=== PATIENT | female | born 1965 ===

== ENCOUNTER 2025-08-25 12:24 | Outpatient (REF) | payer OTHER, MEDICARE, MEDICAID, SELFPAY ==
--- NOTE | 2025-08-25 14:26 | MHC.AU.HA1 ---
Hearing Aid Evaluation Date of Visit: 08/25/25 Historical Information: Description of Hearing: Within normal .25-.5 kHz dropping to moderate to moderately-severe sensorineural hearing loss, bilaterally Summary: Hearing test and medical clearance from [facility]. Reported noticing hearing loss ~2 years ago which gradually worsened. Now having significant difficulty communication in all listening environments. Often gets embarrassed or frustrated from having to ask for repetition or mishearing words. Tried her mom's 15 year old BRUSH and noted improvement in hearing and ease of communication. Ready to pursue her own hearing aids to help facilitate better communication. Discussed manufacturers, styles, technology. Opted for rechargeable RITE compatible with iPhone. Hearing Aid Prescription: Based on the individual?s shared listening needs, communication environments, dexterity, desire for connectivity, and personal preferences, the following prescription for amplification has been made: Right ear: Make, Model, Color: [employer] Intent 2 miniRITE-R Color: Black Battery Size: Rechargeable Sheet Manufacturing Supervisor/Slim Tube: 2/85 Type of Earmold/Dome/CShell/SlimTip: 8mm double gonzalez dome Left ear: Left ear prescription to be same as Right Hearing Aid above: Make, Model, Color: [employer] Intent 2 miniRITE-R Color: Black Battery Size: Rechargeable Sheet Manufacturing Supervisor/Slim Tube: 2/85 Type of Earmold/Dome/CShell/SlimTip: 8mm double gonzalez dome Accessories/Assistive Technology: Manager Account Management Plan of Care: Patient wishes to purchase hearing aids as prescribed Action Taken/Action Needed: Hearing Instrument Fitting to be scheduled when materials arrive Primary Diagnosis: H90.3 Bilateral Sensorineural Hearing Loss Signature: Provider: Dara Can, [facility]
--- OUTSIDE RECORDS SUMMARY | 2025-08-25 15:35 | XMS_ITS | Clinical Summary ---
Author Organization [facility] Address [address] [place] [address] Phone Care Team Providers Care Compliance Monitor Name Role Phone Jacques Claros MD Primary Care Provider [phone] Allergies No known active allergies Medications citalopram (CeleXA) 20 mg tablet Take 1 tablet (20 mg total) by mouth. 04/07/20 22 Active diclofenac (VOLTAREN) 1 % topical gel Apply 4 g topically. 10/23/20 23 Active melatonin 5 mg disintegrating tablet Take by mouth at bedtime as needed for sleep. 04/04/20 22 Active OLANZapine (ZyPREXA) 10 mg tablet Take 1 tablet (10 mg total) by mouth at bedtime. Active acetaminophen (TYLENOL) 500 mg tablet Take 1 tablet (500 mg total) by mouth every 6 (six) hours. 08/03/20 24 Active cetirizine (ZyrTEC) 10 mg tablet TAKE 1 TABLET BY MOUTH DAILY 28 tablet 5 02/09/20 25 Active gabapentin (NEURONTIN) 100 mg capsule TAKE 1 CAPSULE BY MOUTH AT NIGHT NEEDED 28 capsule 2 03/09/20 25 Active albuterol HFA (PROAIR HFA ; PROVENTIL HFA ; VENTOLIN HFA) 90 mcg/actuation inhaler INHALE 2 PUFFS BY MOUTH INTO THE LUNGS EVERY FOUR HOURS NEEDED FOR COUGH OR WHEEZING 8.5 g 2 03/09/20 25 Active anastrozole (ARIMIDEX) 1 mg TAKE 1 TABLET BY MOUTH (1 MG TOTAL) BY MOUTH DAILY SWALLOW WHOLE WITH A DRINK OF WATER 90 tablet 3 03/18/20 25 026 Active meloxicam (MOBIC) 7.5 mg tablet TAKE 1 TABLET BY MOUTH EVERY DAY 30 tablet 1 03/25/20 25 Active atorvastatin (LIPITOR) 20 mg tablet Take 1 tablet (20 mg total) by mouth 1 (one) time each day. 90 tablet 1 04/22/20 25 Active freestyle (FreeStyle Lancets) 28 gauge lancets Use to check blood sugars twice daily 100 each 08/05/20 25 Active glucose blood test strip Use to test blood sugar twice daily 100 each 08/05/20 25 Active glucose blood test strip Use to test blood sugar twice daily 100 each 3 08/05/20 25 Active FreeStyle Lite Meter monitoring kitIndications:Ty pe 2 diabetes mellitus with other specified complication, without long-term current use of insulin ([facility] V24, [facility] V28) 1 each 2 (two) times a day. Use to check blood sugar twice a day 1 kit 08/05/20 25 Active metFORMIN XR (GLUCOPHAGE-XR) 500 mg 24 hr tablet .2 (two) times a day. 180 tablet 08/15/20 25 Active blood-glucose meter kit Check blood sugar twice a day 03/17/20 24 025 Discontinued freestyle (FreeStyle Lancets) 28 gauge lancets DX: E11.9 Use to check blood sugars twice daily 100 each 1 02/09/20 25 025 Discontinued(R eorder) glucose blood test strip Use to test blood sugar twice daily 100 each 3 02/09/20 25 025 Discontinued(R eorder) metFORMIN XR (GLUCOPHAGE-XR) 500 mg 24 hr tablet .2 (two) times a day. 28 tablet 03/18/20 25 025 Discontinued(R eorder) FreeStyle Lite Meter monitoring kitIndications:Ty pe 2 diabetes mellitus with other specified complication, without long-term current use of insulin ([facility] V24, [facility] V28) 1 each 2 (two) times a day. 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 V24, [facility] V28) 06/18/2021 Acute seasonal allergic rhinitis due to pollen 0 07/03/2018 Overweight (BMI 25.0-29.9) 07/03/2018 Resolved Problems Problem Noted Date Diagnosed Date Resolved Date Atypical ductal hyperplasia of right breast 07/14/2024 12/14/2024 Encounters Date Type Department Care Team Description 06/14/2025 9:00 AM EDT Office Visit [address] [id number] Denis Chan MD Malignant neoplasm of lower-outer quadrant of right breast of female, estrogen receptor positive ([facility] V24, [facility] V28) (Primary Dx); Postoperative breast asymmetry from Last 3 Months Immunizations Immunization Administration Dates Next Due Influenza trivalent, 0.5mL, preservative free (Fluarix; FluLaval; Fluzone) ages 6mo and older (Afluria) 3 years and older 10/06/2014 Pneumococcal polysaccharide 23 valent (Pneumovax 23) 2yo and older 06/18/2021 Tdap Tetanus diptheria acell ular pertussis (Boostrix; Adacel) 7yo and older 11/01/2024,10/06/2014 Surgical History Surgery Date Site/Laterality Comments BREAST BIOPSY 12/2015 Right PROCEDURE: BX BREAST; PERC NEEDLE CORE W/IMAG GUID; COMMENT: neg COLONOSCOPY 2022 PROCEDURE: HISTORICAL COLONOSCOPY; COMMENT: nml OTHER SURGICAL HISTORY 08/03/2024 Right PROCEDURE: FL MASTECTOMY PARTIAL; COMMENT: Right breast magnetic seed localized partial mastectomy, right axilla sentinel lymph node biopsy ob 08/03/2024. BREAST LUMPECTOMY Right Medical History Medical History Date Comments Iron deficiency anemia DX:Iron d eficiency anemia Malignant neoplasm of lower- outer quadrant of right breast of female, estrogen receptor positive ([facility] V24, [facility] V28) 07/14/2024 DX:Malignant neoplasm of low er-outer quadrant of right breast of female, estrogen receptor positive (HCC) Depression DX:Depression Asthma DX:Asthma Diabetes ([facility] V24, [facility] V28) DX:Diabetes (HCC) Family History Medical History Relation Name Comments Other cancer Maternal Grandfather Unknown type Diabetes Mother on insulin; ret inopathy; HTN Diabetes Sister Diabetes Son Breast cancer Neg Hx Colon cancer Neg Hx Ovarian cancer Neg Hx Relation Name Status Comments Maternal Grandfather Mother Sister Son Social History Tobacco Use Types Packs/Day Years Used Date Smoking Tobacco: Former Cigarettes Q uit: 07/16/2013 Smokeless Tobacco: Never Tobacco Cessation:Counseling Given: Not Answered Comments:Per patient, social smoker Alcohol Use Standard Drinks/Week Comments Not Currently 0 (1 standard drink = 0.6 oz pur e alcohol) Comments No Sex and Gender Information Value Date Recorded Sex Assigned at Female 03/19/2025 2:16 PM EDT Legal Sex Female 1:03 PM EST Gender Identity Female 03/19/2025 2:16 PM EDT Sexual Orientation Straight 03/19/2025 2: 16 PM EDT Obstetrics History * This document contains information received from the source organization and may not represent a complete record from that organization. Para Term AB IAB SAB Ectopic Multiple Livin g Live Births 8 5 4 1 5 5 Date Outcome GA Total Labor Labor/2nd/3rd Weight Sex Type Anes PTL Shannon A1 A5 Name Clin 1983 Term 41w 0d 2268 g (80 oz) F Vag-S pont Living 1990 Term 40w 0d 2835 g (100 oz) M Vag-S pont Living 1993 Term 40w 0d 3175 g (112 oz) M Vag-S pont Living 1998 36w 0d 1361 g (48 oz) M Vag-S pont Living 2006 Term 40w 0d 3629 g (128 oz) F Vag-S pont Living Last Filed Vital Signs Vital Sign Reading Time Taken Comments Blood Pressure 132/80 06/14/2025 8:47 AM EDT Pulse 65 06/14/2025 8:47 AM EDT Temperature 36.7 C (98.1 F) 06/14/2025 8:47 AM EDT Respiratory Rate 16 12/10/2024 9:27 AM EST Oxygen Saturation 99% 05/11/2025 10:32 AM EDT Inhaled Oxygen Concentration - - Weight 68.9 kg (152 lb) 06/14/2025 8:47 AM EDT Height 157.5 cm (5' 2 ) 05/18/2025 1:33 PM EDT Body Mass Index 27.8 05/18/2025 1:33 PM EDT Plan of Treatment Upcoming Encounters Date Type Department Care Team (Late st Contact Info) Description 09/21/2025 10:00 AM EST Office Visit [facility] [address] [place] [phone] Abril Dawson MD [address] [place] [phone] 05/22/2026 1:30 PM EDT [facility]ointment [facility] [address] [phone] Health Maintenance Due Date Last Done Comments Colorectal Cancer Screening: Colonoscopy 1967 Diabetes: Annual Foot Exam 1977 Hepatitis B Vaccines (1 of 3 - 19+ 3-dose series) 1986 Zoster Vaccines (1 of 2) 1986 RSV Immunization Adult Patients (1 - Risk 50-74 years 1-dose series) 2017 Pneumococcal Vaccine: 50+ Years (2 of 2 - PCV) 06/18/2022 06/18/2021 Hepatitis C Screening 10/12/2022 Social Influencers of Health Screening 10/12/2022 Cervical Cancer Screening: Pap Smear 04/10/2024 04/10/2021, 05/13/2018 Depression Screening 11/03/2024 COVID-19 Vaccine ( season) 2025 10/15/2022, 01/11/2021, 12/15/2020 Influenza Vaccine (#1) 2025 10/06/2014 Diabetes: Blood Sugar Control Test (HGBA1C) 09/29/2025 03/29/2025, 11/01/2024, 05/18/2024 Diabetes: Annual Retina Eye Exam 10/12/2025 10/12/2024 Diabetes: Annual Urine Albumin-Creatinine Ratio (uACR) 03/29/2026 03/29/2025 Diabetes: Annual GFR (Glomerular Filtration Rate) 03/29/2026 03/29/2025, 11/01/2024, 05/18/2024 Breast Cancer Screening 05/18/2027 05/18/20 25, 11/17/2023, 11/15/2021, Additional history exists Cholesterol Screening (Lipid Panel) 03/29/2030 03/29/2025, 11/01/2024, 05/18/2024 DTaP,Tdap,and Td Vaccines (3 - Td or Tdap) 11/01/2034 11/01/2024, 10/06/2014 Osteoporosis Screening (Bone Density Screening) 01/18/2035 01/18/2025 HIV Screening Completed 05/18/2024 HIB Vaccines Aged Out No longer eligi ble based on patient's age to complete this topic HPV Vaccines Aged Out No longer eligi ble based on patient's age to complete this topic Hepatitis A Vaccines Aged Out No long er eligible based on patient's age to complete this topic IPV Vaccines Aged Out No longer eligi ble based on patient's age to complete this topic MMR Vaccines Aged Out No longer eligi ble based on patient's age to complete this topic Meningococcal ACWY Vaccine Aged Out N o longer eligible based on patient's age to complete this topic Meningococcal B Vaccine Aged Out No l onger eligible based on patient's age to complete this topic RSV Immunization Patients Under 20 months Aged Out No longer eligible based on patient's age to complete this topic Varicella Vaccines Aged Out No longer eligible based on patient's age to complete this topic Procedures Procedure Name Priority Date/Time Associated Diagnosis Comments VENIPUNCTURE CHARGE Routine 06/14/2025 1 0:30 AM EDT Malignant neoplasm of lower-outer quadrant of right female breast ([facility] V24, [facility] V28) MG MAMMO DIGITAL DIAGNOSTIC W KIRILL BILAT Routine 05/18/2025 1:56 PM EDT Malignant neoplasm of lower-outer quadrant of right breast of female, estrogen receptor positive ([facility] V24, [facility] V28) MICROALBUMIN CREATININE URINE RATIO Routine 03/29/2025 2:09 PM EDT Type 2 diabetes mellitus with other specified complication, unspecified whether laborer marine terminal insulin use ([facility] V24, [facility] V28) COMPREHENSIVE METABOLIC PANEL Routine 03/29/2025 2:09 PM EDT Type 2 diabetes mellitus with other specified complication, without long-term current use of insulin ([facility] V24, [facility] V28) HEMOGLOBIN A1C Routine 03/29/2025 2:09 PM EDT Type 2 diabetes mellitus with other specified complication, without long-term current use of insulin ([facility] V24, [facility] V28) LIPID PANEL WITH REFLEX TO DIRECT LDL Routine 03/29/2025 2:09 PM EDT Type 2 diabetes mellitus with other specified complication, without long-term current use of insulin ([facility] V24, [facility] V28) BD BONE DENSITY DXA AXIAL SKELETON Routine 01/18/2025 1:34 PM EDT Malignant neoplasm of lower-outer quadrant of right breast of female, estrogen receptor positive ([facility] V24, [facility] V28) Osteopenia of multiple sites DIABETES EYE EXAM 10/12/2024 PAP SMEAR Routine 04/10/2021 from Last 3 Months or Most Recently Relevant to Health Maintenance Results * Venipuncture charge (06/14/2025 10:30 AM EDT) Extra Tube Hold for add-ons. 06/14/2025 1:02 PM EDT [facility] ([facility] Comment:Auto resulted. Blood Venous blood specimen / Unknown Venipuncture / Unknown 06/14/2025 10:30 AM EDT 06/14/2025 11:24 AM EDT Denis Chan MD LAB BLOOD ORDERABLES Final Resul t [facility] ([facility] [address] [place] [address], [place] [phone] * MG Mammo Digital Diagnostic w Kirill bilat (05/18/2025 1:56 PM EDT) Anatomical Region Laterality Modality Breast Bilateral Mammography 05/18/2025 1:38 PM EDT Impressions 05/18/2025 1:53 PM EDT No mammographic evidence of new or recurrent malignancy. Interval right lumpectomy. Recommend diagnostic bilateral mammography in 12 months ASSESSMENT: BI-RADS 2: BENIGN RECOMMENDATION(S): 1: Follow-up diagnostic mammogram BILATERAL in 1 year. Mammography location: [facility] [address] [place], [address] -------- FINAL REPORT -------- Dictated By: Brenden Tan Dictated Date: 05/18/2025 13:38 ET Assigned Physician: Brenden Tan Reviewed and Electronically Signed By: Brenden Tan Signed Date: 05/18/2025 13:53 ET Workstation ID: [id number] Transcribed By: Self Edit Transcribed Date: 05/18/2025 13:38 ET Narrative 05/18/2025 1:53 PM EDT EXAM: DIAGNOSTIC MAMMOGRAPHY, BILATERAL HISTORY: Personal history of right breast cancer. Right lumpectomy August 2024 COMPARISON: 08/06/24, 08/03/24, 07/28/24, 06/30/24, 06/04/24, 12/16/23, 11/17/23, 11/15/21, 08/28/20, 07/14/19 TECHNIQUE: Synthesized CC and MLO projections of each breast. Tomosynthesis of each breast in the CC and MLO projections. ADDITIONAL IMAGING: Spot magnified views of the right lumpectomy site in multiple projections Computer-aided detection was employed with the [employer] AI 3-D. TISSUE DENSITY: There are scattered areas of fibroglandular density. (BI-RADS category B) FINDINGS: RIGHT BREAST: The right breast is smaller than the left. There is postsurgical change. There is trabecular thickening. There is distortion. There are 2 biopsy site markers present in the medial and central right breast. No convincing evidence of new or recurrent right breast cancer. LEFT BREAST: No suspicious mass. No suspicious calcification. No distortion. No additional suspicious left breast findings Procedure Note Brenden Tan MD - 05/18/2025 EXAM: DIAGNOSTIC MAMMOGRAPHY, BILATERAL HISTORY: Personal history of right breast cancer. Right lumpectomyOct2023 COMPARISON: 08/06/24, 08/03/24, 07/28/24, 06/30/24, 06/04/24, 12/16/23, 11/17/23,11/15/21, 08/28/20, 07/14/19 TECHNIQUE: Synthesized CC and MLO projections of each breast.Tomosynthesis of each breast in the CC and MLO projections. ADDITIONAL IMAGING: Spot magnified views of the right lumpectomy site inmultiple projections Computer-aided detection was employed with the [employer] AI 3-D. TISSUE DENSITY: There are scattered areas of fibroglandular density.(BI-RADS category B) FINDINGS: RIGHT BREAST: The right breast is smaller than the left. There is postsurgical change.There is trabecular thickening. There is distortion. There are 2 biopsy site markers present in the medial and central rightbreast. No convincing evidence of new or recurrent right breast cancer. LEFT BREAST: No suspicious mass. No suspicious calcification. No distortion. Noadditional suspicious left breast findings IMPRESSION: No mammographic evidence of new or recurrent malignancy. Interval right lumpectomy. Recommend diagnostic bilateral mammography in 12 months ASSESSMENT: BI-RADS 2: BENIGN RECOMMENDATION(S): 1: Follow-up diagnostic mammogram BILATERAL in 1 year. [facility]amm[facility] location[facility] [address], [address] -------- FINAL REPORT -------- Dictated By: Brenden Tan Dictated Date: 05/18/2025 13:38 ET Assigned Physician: Brenden Tan Reviewed and Electronically Signed By: Brenden Tan Signed Date: 05/18/2025 13:53 ET Workstation ID: [id number] Transcribed By: Self Edit Transcribed Date: 05/18/2025 13:38 ET us Denis Chan MD IMG BI PROCEDURES Final Result * (ABNORMAL) Lipid panel with reflex to direct LDL (03/29/2025 2:09 PM EDT) Cholesterol 166 0 - 200 mg/dL LAB CHEMISTRY METHOD 03/29/2025 7:09 PM EDT [facility] Triglycerides 196(H) 0 - 150 mg/dL LAB CHEMISTRY METHOD 03/29/2025 7:09 PM EDT [facility] HDL 58 >=40 mg/dL LAB CHEMISTRY METHOD 03/29/2025 7:09 PM EDT [facility] LDL Calculated 69 0 - 100 mg/dL LAB CHEMISTRY METHOD 03/29/2025 7:09 PM EDT [facility] VLDL Cholesterol Zurdo 39.2 mg/dL LAB CHEMISTRY METHOD 03/29/2025 7:09 PM EDT [facility] Non HDL Chol. (LDL+VLDL) 108 <145 mg/dL LAB CHEMISTRY METHOD 03/29/2025 7:09 PM EDT [facility] Chol/HDL Ratio 2.9 0.0 - 4.4 LAB CHEMISTRY METHOD 03/29/2025 7:09 PM EDT [facility] Blood Venous blood specimen / Unknown Venipuncture / Unknown 03/29/2025 2:09 PM EDT 03/29/2025 2:09 PM EDT us Jacques Claros MD LAB BLOOD ORDERABLES Final Res ult [facility] [address] [place] [address], [place] [phone] * Microalbumin creatinine urine ratio (03/29/2025 2:09 PM EDT) Creatinine, Urine 176.0 mg/dL LAB CHEMISTRY METHOD 03/29/2025 5:34 PM EDT [facility] Microalb, Ur 22.1 0.0 - 29.0 mg/L LAB CHEMISTRY METHOD 03/29/2025 5:34 PM EDT [facility] Microalb/Creat Ratio 13 <30 mg/g creat LAB CHEMISTRY METHOD 03/29/2025 5:34 PM EDT [facility] Urine Urine specimen obtained by clean catch procedure / Unknown Non-blood Collection / Unknown 03/29/2025 2:09 PM EDT 03/29/2025 2:09 PM EDT us Jacques Claros MD LAB URINE ORDERABLES Final Res ult Performing Organization Address [facility]/ZIP Co de Phone Number [facility] [address] [place] [address], [place] [phone] * Hemoglobin A1c (03/29/2025 2:09 PM EDT) Hemoglobin A1C 6.3 <6.5 % LAB CHEMISTRY METHOD 03/29/2025 10:31 PM EDT [facility] Mean Bld Glu Estim. 134 mg/dL LAB CHEMISTRY METHOD 03/29/2025 10:31 PM EDT [facility] Blood Venous blood specimen / Unknown Venipuncture / Unknown 03/29/2025 2:09 PM EDT 03/29/2025 2:09 PM EDT us Jacques Claros MD LAB BLOOD ORDERABLES Final Res ult [facility] [address] [place] [address], [place] [phone] * (ABNORMAL) Comprehensive metabolic panel (03/29/2025 2:09 PM EDT) Sodium 139 133 - 145 mmol/L LAB CHEMISTRY METHOD 03/29/2025 7:24 PM [facility] Potassium 4.1 3.5 - 5.5 mmol/L LAB CHEMISTRY METHOD 03/29/2025 7:24 PM [facility] Chloride 105 96 - 110 mmol/L LAB CHEMISTRY METHOD 03/29/2025 7:24 PM [facility] CO2 27 21 - 32 mmol/L LAB CHEMISTRY METHOD 03/29/2025 7:24 PM [facility] Anion Gap 7 3 - 11 LAB CHEMISTRY METHOD 03/29/2025 7:24 PM [facility] Glucose 178(H) 70 - 100 mg/dL LAB CHEMISTRY METHOD 03/29/2025 7:24 PM [facility] BUN 16 5 - 25 mg/dL LAB CHEMISTRY METHOD 03/29/2025 7:24 PM [facility] Creatinine 0.75 0.50 - 1.10 mg/dL LAB CHEMISTRY METHOD 03/29/2025 7:24 PM [facility] eGFR 92 >=60 mL/min/1. 73m2 LAB CHEMISTRY METHOD 03/29/2025 7:24 PM [facility] Comment:Calculation based on the Chronic Kidney Disease Epidemiology Collaboration (CKD-EPI) equation refit without adjustment for race. BUN/Creatinine Ratio 21.3 LAB CHEMISTRY METHOD 03/29/2025 7:24 PM [facility] Calcium 9.5 8.5 - 10.5 mg/dL LAB CHEMISTRY METHOD 03/29/2025 7:24 PM [facility] AST (SGOT) 23 10 - 42 unit/L LAB CHEMISTRY METHOD 03/29/2025 7:24 PM [facility] ALT (SGPT) 55 10 - 60 unit/L LAB CHEMISTRY METHOD 03/29/2025 7:24 PM [facility] Alkaline Phosphatase 80 42 - 121 unit/L LAB CHEMISTRY METHOD 03/29/2025 7:24 PM EDT [facility] Total Protein 7.0 6.0 - 8.0 g/dL LAB CHEMISTRY METHOD 03/29/2025 7:24 PM EDT [facility] Albumin 3.8 3.2 - 5.0 g/dL LAB CHEMISTRY METHOD 03/29/2025 7:24 PM EDT [facility] Total Bilirubin 0.7 0.0 - 1.4 mg/dL LAB CHEMISTRY METHOD 03/29/2025 7:24 PM EDT [facility] Blood Venous blood specimen / Unknown Venipuncture / Unknown 03/29/2025 2:09 PM EDT 03/29/2025 2:09 PM EDT us Jacques Claros MD LAB BLOOD ORDERABLES Final Res ult [facility] [address] [place] [address], * BD Bone Density DXA Axial Skeleton (01/18/2025 1:34 PM EDT) Anatomical Region Laterality Modality Wrist, Hip, L-spine Bone Densito metry 01/19/2025 8:0 1 AM EDT Impressions 01/19/2025 8:03 AM EDT 1. Osteopenia. 2. FRAX analysis yields a 10-year probability of major osteoporotic fracture of 3.6% and a 10-year probability of hip fracture of 0.2%. Code 35400 -------- FINAL REPORT -------- Dictated By: Shiraz Olmstead Dictated Date: 01/19/2025 08:01 ET Assigned Physician: Shiraz Olmstead Reviewed and Electronically Signed By: Shiraz Olmstead Signed Date: 01/19/2025 08:03 ET Workstation ID: [id number] Transcribed By: Self Edit Transcribed Date: 01/19/2025 08:01 ET Narrative 01/19/2025 8:03 AM EDT HISTORY: The patient is a 59-year-old postmenopausal female with clinical concern for metabolic bone disease. FINDINGS: Dual energy x-ray absorptiometry of the lumbar spine and femurs is performed. The mean bone mineral density at L1-L4 is 1.019 gm/cm2 which is 86% of that of young normals and 95% of that of age matched controls. This yields a T-score of -1.3 and a Z-score of -0.4 which is diagnostic of osteopenia. The mean bone mineral density of the femurs bilaterally is 0.852 gm/cm2 which is 85% of that of young normals and 93% of that of age matched controls. This yields a T-score of -1.2 and a Z-score of -0.5 which is diagnostic of osteopenia. The T-score of the entire left femur is -1.4 which is diagnostic of osteopenia. Procedure Note Shiraz Olmstead MD - 01/19/2025 HISTORY: The patient is a 59-year-old postmenopausal female with clinicalconcern for metabolic bone disease. FINDINGS: Dual energy x-ray absorptiometry of the lumbar spine and femursis performed. The mean bone mineral density at L1-L4 is 1.019 gm/cm2 whichis 86% of that of young normals and 95% of that of age matched controls.This yields a T-score of -1.3 and a Z-score of -0.4 which is diagnostic ofosteopenia. The mean bone mineral density of the femurs bilaterally is 0.852 gm/ib2tjvvj is 85% of that of young normals and 93% of that of age matchedcontrols. This yields a T-score of -1.2 and a Z-score of -0.5 which isdiagnostic of osteopenia. The T- score of the entire left femur is -1.4which is diagnostic of osteopenia. IMPRESSION: 1. Osteopenia. 2. FRAX analysis yields a 10-year probability of major osteoporoticfracture of 3.6% and a 10-year probability of hip fracture of 0.2%. Code 44929 -------- FINAL REPORT -------- Dictated By: Shiraz Olmstead Dictated Date: 01/19/2025 08:01 ET Assigned Physician: Shiraz Olmstead Reviewed and Electronically Signed By: Shiraz Olmstead Signed Date: 01/19/2025 08:03 ET Workstation ID: [id number] Transcribed By: Self Edit Transcribed Date: 01/19/2025 08:01 ET Abril Dawson MD IMG DXA PROCEDURES Final Result * Diabetes Eye Exam (10/12/2024) Provider [facility] Final Result * Pap smear (04/10/2021) 04/10/2021 Narrative HISTORICAL TESTING LAB RESULTING AGENCY - 04/17/2021 1:36 PM EDT [id number] THINPREP PAP, IMAGED: NEGATIVE FOR SQUAMOUS INTRAEPITHELIAL LESION AND MALIGNANCY . CLUE CELLS ARE PRESENT. RASHEL MONAE(ASCP) (CASE ELECTRONICALLY SIGNED 04 17 2021) RESULT OF APTIMA HIGH RISK HPV ASSAY: HIGH RISK HPV: NEGATIVE (SEROTYPES 16,18,31,33,35,39,45,51,52,56,58,59,66,68) COMPLETED ON 2021-04-12 ADEQUACY: SATISFACTORY ENDOCERVICAL/TRANSFORMATION ZONE COMPONENT PRESENT. SOURCE: THINPREP PAP HPV ANY DX: REFLEX 16 AND 18, CERVICAL, IMAGED CLINICAL INFORMATION: HPV ANY DIAGNOSIS. HORMONES, PAP HX NEG, NO LMP RECORDED [Z12.4, Z01.419] Kesha Lemus CN LAB CYTOLOGY ORDERA BLES Final Result HISTORICAL TESTING LAB RESULTING AGENCY from Last 3 Months or Most Recently Relevant to Health Maintenance Insurance [place] - [place] [facility] Care Teams Compliance Monitor Relationship Specialty Start Date End Date Jacques Claros MD [address] [place] [address] PCP - General Internal Medicine 09/29/24
--- OUTSIDE RECORDS SUMMARY | 2025-08-25 15:35 | XMS_ITS | Clinical Summary ---
Author Organization [facility] Address [address] [place] [address] Care Team Providers Care Furniture Manager Name Role Phone Jacques Claros MD Primary Care Provider [phone] Allergies No known active allergies Medications Medication Sig Dispensed Refills Start Date End Date Status atorvastatin (LIPITOR) tablet 20 mg Take 1 tablet (20 mg total) by mouth daily. 0 05/26/2024 Active docusate sodium (COLACE) 100 MG capsule TAKE 1 CAPSULE BY MOUTH TWICE A DAY NEEDED FOR ADJUNCT TO NARCOTIC ANALGESIA 0 08/03/2024 Active meloxicam (MOBIC) 7.5 MG tablet Take 1 tablet (7.5 mg total) by mouth daily. 0 06/15/2024 Active metFORMIN (GLUCOPHAGE-XR) ER 24 hr tablet 500 mg Take 1 tablet (500 mg total) by mouth every morning with breakfast. 0 05/30/2024 Active traMADol (ULTRAM) 50 MG tablet TAKE 1 TABLET BY MOUTH EVERY 6 HOURS NEEDED FOR SEVERE PAIN SCALE 7-10 0 08/03/2024 Active ibuprofen 400 MG tablet TAKE 1 TABLET BY MOUTH EVERY 6 HOURS NEEDED FOR MODERATE PAIN SCALE 4-6 0 08/03/2024 Active Active Problems Problem Noted Date Diagnosed Date Malignant neoplasm of lower- outer quadrant of right breast of female, estrogen receptor positive 08/16/2024 Cancer Staging:Pathologic stage from 08/04/2024:Stage IA(pT1b, pN1, cM0, G1, ER+, NJ+, HER2-) - Signed by Abril Orellana MD on 08/16/2024 Family History Medical History Relation Name Comments Cancer Maternal Grandmother Relation Name Status Comments Maternal Grandmother Social History Tobacco Use Types Packs/Day Years Used Date Smoking Tobacco: Former Cigarettes Q uit: 07/16/2023 Smokeless Tobacco: Never Tobacco Cessation:Counseling Given: Not Answered Alcohol Use Standard Drinks/Week Comments Not Currently 0 (1 standard drink = 0.6 oz pur e alcohol) Sex and Gender Information Value Date Recorded Sex Assigned at Not on file Gender Identity Not on file Sexual Orientation Not on file Job Start Date Occupation Industry Not on file Not on file Not on file Last Filed Vital Signs Vital Sign Reading Time Taken Comments Blood Pressure 149/80 08/16/2024 1:11 PM EDT Pulse 79 08/16/2024 1:11 PM EDT Temperature 36.8 C (98.2 F) 08/16/2024 1:11 PM EDT Respiratory Rate - - Oxygen Saturation 98% 08/16/2024 1:11 PM EDT Inhaled Oxygen Concentration - - Weight 70.8 kg (156 lb) 08/16/2024 1:11 PM EDT Height 161.9 cm (5' 3.75 ) 08/16/2024 1:11 PM ED T Body Mass Index 26.99 08/16/2024 1:11 PM EDT Plan of Treatment Health Maintenance Due Date Last Done Comments Hepatitis B Vaccines (1 of 3 - 3-dose series) 1967 Hepatitis C Screening 1967 COVID-19 Vaccine (#1) 1972 Depression Screening 1979 Preventative Health Evaluation 1985 Shingrix-Zoster Vaccine (1 of 2) 1986 Cervical Cancer Screening (P ap Smear) 1988 Colon Cancer Screening (Colonoscopy) 2012 Breast Cancer Screening (Mammogram) 2017 Pneumococcal Vaccine (2 of 2 - PCV) 06/18/2022 06/18/2021 DTap / Tdap / Td (2 - Td or Tdap) 10/06/2024 014 Influenza Vaccine (#1) 2025 RSV Ped < 20 months Aged Out No longe r eligible based on patient's age to complete this topic Insurance Payer Benefit Plan / Group Subscriber ID Effective Dates Phone Address [facility] [id number] 2022-Prese nt [address] [place] [address] [facility] [place] [id number] 2022-Pres e nt [address] [place] [address] Medicaid Care Teams Furniture Manager Relationship Specialty Start Date End Date Jacques Claros MD PCP - General Internal Medicine 07/15/24
--- OUTSIDE RECORDS SUMMARY | 2025-08-25 15:35 | XMS_ITS | Encounter Summary ---
Author Organization [facility] Address [address] [place] [address] Care Team Providers Care Supervisor Rough End Name Role Phone Jacques Claros MD Primary Care Provider [phone] Encounter Details Date Type Department Care Team Description 08/11/2024 Nurse Only [facility] [address] [place] [address] Laura Martel, RN Social History Tobacco Use Types Packs/Day Years Used Date Smoking Tobacco: Never Assessed Sex and Gender Information Value Date Recorded Sex Assigned at Not on file Gender Identity Not on file Sexual Orientation Not on file Job Start Date Occupation Industry Not on file Not on file Not on file documented as of this encounter Progress Notes * Laura Martel, RN - 08/11/2024 10:24 AM EDT Oncotype Dx was ordered by the [facility]. documented in this encounter Plan of Treatment Not on file documented as of this encounter Visit Diagnoses Not on filedocumented in this encounter Care Teams Supervisor Rough End Relationship Specialty Start Date End Date Jacques Claros MD PCP - General Internal Medicine 07/15/24 documented as of this encounter
--- OUTSIDE RECORDS SUMMARY | 2025-08-25 15:35 | XMS_ITS | Encounter Summary ---
Author Organization [facility] Address [address] [place] [address] Care Team Providers Care Title Insurance Sales Representative Name Role Phone Jacques Claros MD Primary Care Provider [phone] Encounter Details Date Type Department Care Team Description 08/18/2024 Nurse Only [facility] [address] [place] [address] Laura Martel RN Social History Tobacco Use Types Packs/Day Years Used Date Smoking Tobacco: Former Cigarettes Q uit: 07/16/2023 Smokeless Tobacco: Never Alcohol Use Standard Drinks/Week Comments Not Currently 0 (1 standard drink = 0.6 oz pur e alcohol) Sex and Gender Information Value Date Recorded Sex Assigned at Not on file Gender Identity Not on file Sexual Orientation Not on file Job Start Date Occupation Industry Not on file Not on file Not on file documented as of this encounter Progress Notes * Laura Martel RN - 08/18/2024 9:21 AM EDT Images from the original note were not included. -the full final report has been uploaded under media * Laura Martel RN - 08/18/2024 9:21 AM EDT 08/25/24 per Eliza FUNEZ Second oncotype dx was requested on the second tumor documented in this encounter Plan of Treatment Not on file documented as of this encounter Visit Diagnoses Not on filedocumented in this encounter Care Teams Title Insurance Sales Representative Relationship Specialty Start Date End Date Jacques Claros MD PCP - General Internal Medicine 07/15/24 documented as of this encounter
--- OUTSIDE RECORDS SUMMARY | 2025-08-25 15:35 | XMS_ITS ---
Author Organization [facility] Address [address] [place] [address] Phone Care Team Providers Care Production Operations Engineer Name Role Phone Jacques Claros MD Primary Care Provider [phone] Active Problems Problem Noted Date Diagnosed Date Malignant neoplasm of lower- outer quadrant of right breast of female, estrogen receptor positive ([facility] V24, [facility] V28) 08/18/2024 Cancer Staging:Pathologic:Stage IA(pT1b, pN1a, cM0, G1, ER+, NV+, HER2-, Oncotype DX score: 13) - Signed by Reese eDe MD on 09/13/2024 Diabetes ([facility] V24, [facility] V28) 06/18/2021 Acute seasonal allergic rhinitis due to pollen 0 07/03/2018 Overweight (BMI 25.0-29.9) 07/03/2018 Current Treatment and Therapy Plans No current plan information found. Past Treatment and Therapy Plans No past plan information found. Current Radiation Episodes * Radiation Therapy: BreastOverview* First Treatment Date Latest Treatment Date Treatment Site Technique Goal Episode Provider 10/19/2024 11/17/2024 Breast Curative Sarah Lucio NP * Linked Problems Treatment Courses* Course 1 10/19/2024 - 11/17/2024 Treatment Sites Treatment Period Fraction Dose Fractions Total Dose rt breast boost 11/12/2024 - 11/17/2024 250 / 250 cGy 4 / 4 1,000 / 1,000 cGy rt breast-high zavala 10/19/2024 - 11/11/2024 267 / 267 cGy 4,272 / 4,272 cGy Resolved Problems Problem Noted Date Diagnosed Date Resolved Date Atypical ductal hyperplasia of right breast 07/14/2024 12/14/2024
--- OUTSIDE RECORDS SUMMARY | 2025-08-25 15:36 | XMS_ITS | Data Portability ---
Author Organization [place] [facility] Address [address] [address] Care Team Providers Care Clean In Places Operator Name Role Phone CALEB BRADFORD Primary Care Provider Assessment Encounter Date Assessment Date Assessment LastModified by Organization Details LastModified Time 06/01/2025 06/01/2025 1. Bilateral Hearing Loss The patient presents with progressive bilateral hearing loss with a familial predisposition . She denies dizziness but experiences occasional right ear tinnitus. It is recommended that she undergoes annual hearing assessments. Given the family history, her adult children should consider baseline hearing evaluations. I will provide a list of suitable providers for hearing aid assessments, as covered by her insurance. [email or web address] Not available 06/01/2025 10:41:03 Plan of Treatment Reminders Order Date Submit Date Provider Last Modified By Organization Details Last Modified Time Details Appointments None record ed. Lab None record ed. Referral None record ed. Procedures None record ed. Surgeries None record ed. Imaging None record ed. Medication Orders None record ed. Patient TargetsNo targets recorded. Patient Instructions Encounter Date Encounter Id Patient Instructions Last Modified By Organization Details Last Modified Time 06/01/2025 [id number] Please note: Parts of this encounter note have been generated by AI based on audio conversation. Patient consent was required prior to utilizing this technology. Content review was required prior to finalizing the note. [email or web address] Not available 06/01/2025 10:40:29 Reason for Referral None Reported. Results Created Date Observation Date Name Description Value Unit Range Abnormal Flag Note LastModifiedBy Organization Detail LastModifiedTime 06/01/20 25 audio gram No observ ation record ed. BARCODE Not Available 2024 13:17:01 Result Notes None recorded. Problems Name Problem SNOMED Code Status Onset Date Resolution Date Notes Provider Name and Address Organization Details Recorded Time Sensorineural hearing loss of bilateral ears [id number] Active 2024 [facility] [address] [facility], [place], [address], [facility] 10:15:01 Problem Notes None recorded. Procedures Surgical History Date Name Laterality Status Provider Name and Address Organization Details Recorded Time 06/01/2025 Comp Audio with Tymps - 03052 & 23684 completed [facility] [address] [facility], [place], [address], [facility] 06/01/2025 10:14:46 Imaging Results None recorded. Procedure Notes None recorded. Medical Equipment None Reported. Allergies No known drug allergies Medications Name Sig Start Date Stop Date Status Note LastModified by Organization Details LastModified Time anastrozole 1 mg tablet TAKE 1 TABLET BY MOUTH DAILY SWALLOW WHOLE WITH A DRINK OF WATER active Not Available Not Available No t Available atorvastati n 20 mg tablet TAKE 1 TABLET BY MOUTH EVERY DAY active Not Available Not Available No t Available tramadol 50 mg tablet TAKE 1 TABLET BY MOUTH EVERY 6 HOURS NEEDED FOR SEVERE PAIN SCALE 7-10 06/01 completed Not Available Not Available Not Available acetaminoph en 500 mg tablet TAKE 1 TABLET BY MOUTH EVERY 6 HOURS active Not Available Not Available No t Available meloxicam 7.5 mg tablet TAKE 1 TABLET BY MOUTH EVERY DAY 06/01 completed Not Available Not Available Not Available lidocaine 5 % topical patch PLEASE SEE ATTACHED FOR DETAILED DIRECTION S active Not Available Not Available No t Available ibuprofen 400 mg tablet TAKE 1 TABLET BY MOUTH EVERY 6 HOURS NEEDED FOR MODERATE PAIN SCALE 4-6 06/01 completed Not Available Not Available Not Available docusate sodium 100 mg capsule TAKE 1 CAPSULE BY MOUTH TWICE A DAY NEEDED FOR ADJUNCT TO NARCOTIC ANALGESIA 06/01 completed Not Available Not Available Not Available metformin ER 500 mg tablet,exte nded release 24 hr TAKE 1 TABLET BY MOUTH EVERY DAY WITH BREAKFAST active Not Available Not Available No t Available Hibiclens 4 % topical liquid APPLY 1 BOTTLE TOPICALLY ONCE. FOLLOW PREOP INSTRUCTI ON FROM DOCTOR'S OFFICE. [place] 06/01 completed Not Available Not Available Not Available albuterol sulf 90 mcg/actuati on breath activated powder inhaler,sen sor Inhale 2 puffs every 4 hours by inhalatio n route. active Not Available Not Available No t Available Vitals Date Recorded Body height Body mass index (BMI) Body weight Provider Name and Address Organization Details Last Updated DateTime 06/01/2025 157.48 cm 28 kg/m2 95029.63 g Julia Arguello [facility] 06/01/2025 10:25:26 Social History None recorded. Functional Status None recorded. Mental Status None recorded. Family History Nothing Reported Notes:- Mother: Hearing Loss - Maternal Aunt: Hearing Loss Medical History Condition Response Diabetes Y Depression Y Asthma Y Gynecological HistoryNo gynecological history recorded. Obstetrics History GPAL:G 0 P 0 0 0 0 Past Encounters Encounter ID Performer Location Encounter Start Date Encounter Closed Date Diagnosis/Indication Diagnosis SNOMED-CT Code Diagnosis ICD10 Code Diagnosis IMO Codes Diagnosis Note [id number] TRINA HUGO MD [facility] [address] [address] 06/01/2025 09:31:23 06/01/2025 10:41:44 Sensorineural hearing loss of bilateral ears 398829132 H90.3 [id number] Audiologic al evaluation results: Right ear: Normal sloping to severe sensorineu ral hearing loss with good word recognitio n. Left ear: Normal sloping to severe sensorineu ral hearing loss with good word recognitio n. Tympanomet ry: Right Ear:Type A Left Ear:Type A Health Concerns Section Related Observation LastModified by Organization Detai ls LastModified Time None Recorded Concern Status LastModified by Organization Details LastModified Time None Recorded Advance Directives Directive None Recorded Payers Insurance Date Sequence Insurance Name Policy Number Policy Quan Covered Member ID Quan Member ID Guarantor Name 06/01/2025 1 [facility] [id number] Queta Orellanaa [id number] Queta Orellanaa Bill 11/26/2024 3 [facility] Federico Christiano Asher [id number] Queta Khan 06/01/2025 2 [place] [facility] Queta De Los Santosagena Bill [id number] Queta Asher Bill Notes Date Note Type Note Provider Name and Address Organization Details Recorded Time 06/01/2025 text/html ROS as noted in the HPI The patient is a 60-year-old female presenting with hearing loss. The issue began a couple of years ago and involves both ears. Initially, she believed the right ear was primarily affected, but subsequent examination confirmed bilateral involvement. There is a significant family history of hearing loss, as her mother and maternal aunt have similar conditions. Although the patient reports no dizziness, she does experience occasional RARE tinnitus on the right side. The patient's children reportedly have no hearing issues. TRINA MARINELLI MD [address] [place] [address], [phone], [facility] - [facility] 06/01/2025 10:41:49 OBGyn Episode No OBEpisode recorded.
== END 2025-08-25 12:25 | disposition home or self-care (01) ==
LOC: HO.HAP 12:24
DX: Z46.1 Encounter for fitting and adjustment of hearing aid (principal); H90.3 Sensorineural hearing loss, bilateral
CPT/HCPCS: 92591

== ENCOUNTER 2025-08-31 15:00 | Outpatient (REF) | payer OTHER, MEDICARE, MEDICAID, SELFPAY ==
--- NOTE | 2025-08-31 15:41 | MHC.AU.HA2 ---
Hearing Instrument Fitting- Adult- Binaural Date of Visit: 08/31/25 Hearing Instruments Dispensed: Right Ear: Make, Model, Color, Serial Number: Oticon Intent 2 miniRITE-R SN: [id number] Color: Black K [employer] Repair Warranty: 09/24/2028 [employer] Loss and Damage Warranty: 09/24/2028 [facility] Service Plan: 08/31/2026 Battery Size: Rechargeable Medical Administrative Technician/Slim Tube: 2/85 Earmold/Dome/CShell/SlimTip: 8mm double gonzalez dome (no retention tail) Type of Wax Guard: miniFit Left Ear: Make, Model, Color, Serial Number: Oticon Intent 2 miniRITE-R SN: [id number] Color: Black K [employer] Repair Warranty: 09/24/2028 K [employer] Loss and Damage Warranty: 09/24/2028 [facility] Service Plan: 08/31/2026 Battery Size: Rechargeable Medical Administrative Technician/Slim Tube: 2/85 Earmold/Dome/CShell/SlimTip: 8mm double gonzalez dome (no retention tail) Type of Wax Guard: miniFit Accessories/Assistive Technology: Oticon Sr. Vendor Management Associate MiniRITE SN: [id number] Summary of Fitting: Accompanied by friend, Libia. Performed feedback analyzer and real ear measures. Comfortable at real ear settings. Discussed care, use, and rechargeability including manually turning on/off, VC use, and changing domes and wax guards. Paired to cell phone. Practiced insertion and removal. Reportedly had been practicing inserting/removing with her mom's old HAs. Explained importance of daily, consistent use in acclimating to HAs. Given full schedule due to staffing shortage, follow up could not be scheduled until October 2025; however, advised to call if issues arise in the interim. Recommendations: A hearing instrument follow-up was scheduled. Recommendations (Other): Diagnosis Code(s): Primary Diagnosis: H90.3 Bilateral Sensorineural Hearing Loss Signature: Provider: Dara Can, [facility]
--- OUTSIDE RECORDS SUMMARY | 2025-08-31 19:28 | XMS_ITS | Clinical Summary ---
Author Organization [facility] Address [address] [place] [address] Care Team Providers Care Entry Level Civil Engineer Name Role Phone Jacques Claros MD Primary Care Provider [phone] Allergies No known active allergies Medications Medication [...] from 08/04/2024:Stage IA(pT1b, pN1, cM0, G1, ER+, PA+, HER2-) - Signed by Abril Orellana MD [...] Group Subscriber ID Effective Dates Phone Address [facility] [id number] 2022-Prese nt [address] [place] [address] [facility] [place] [id number] 2022-Pres e nt [address] [place] [address] Medicaid Care Teams Entry Level Civil Engineer Relationship Specialty Start Date End Date Jacques Claros MD PCP - General Internal Medicine 07/15/24
--- OUTSIDE RECORDS SUMMARY | 2025-08-31 19:28 | XMS_ITS | Encounter Summary ---
Author Organization [facility] Address [address] [place] [address] Care Team Providers Care Associate Manager Name Role Phone Jacques Claros MD Primary Care Provider Encounter Details Date Type Department Care Team Description 08/18/2024 Nurse Only [facility] [address] [place] [address] Laura Martel RN Social History Tobacco Use [...] on filedocumented in this encounter Care Teams Associate Manager Relationship Specialty Start Date End Date Jacques Claros MD PCP - General Internal Medicine 07/15/24 documented as of this encounter
--- OUTSIDE RECORDS SUMMARY | 2025-08-31 19:28 | XMS_ITS | Clinical Summary ---
Author Organization [facility] Address [address] [place] [address] Phone Care Team Providers Care Throw Out Clerk Name Role Phone Jacques Claros MD Primary Care Provider [phone] Allergies No known active allergies Medications citalopram [...] complication, without long-term current use of insulin ([facility] V24, [facility] V28) 1 each 2 (two) times a [...] complication, without long-term current use of insulin ([facility] V24, [facility] V28) 1 each 2 (two) times a day. Use to check blood sugar twice a day 1 kit 08/04/20 25 025 Discontinued(R eorder) Active Problems Problem Noted Date Diagnosed Date Malignant neoplasm of lower- outer quadrant of right breast of female, estrogen receptor positive ([facility] V24, [facility] V28) 08/18/2024 Cancer Staging:Pathologic:Stage IA(pT1b, pN1a, cM0, G1, ER+, WV+, HER2-, Oncotype DX score: 13) - Signed by Reese Dee MD on 09/13/2024 Diabetes ([facility], [facility] V[facility]) 06/18/2021 Acute seasonal allergic rhinitis due to pollen 0 07/03/2018 Overweight (BMI 25.0-29.9) 07/03/2018 Resolved Problems Problem Noted Date Diagnosed Date Resolved Date Atypical ductal hyperplasia of right breast 07/14/2024 12/14/2024 Encounters Date Type Department Care Team Description 06/14/2025 9:00 AM EDT Office Visit [address] [address] Denis Chan MD Malignant neoplasm of lower-outer quadrant of right breast of female, estrogen receptor positive ([facility] V24, [facility] V28) (Primary Dx); Postoperative breast asymmetry from [...] nml OTHER SURGICAL HISTORY 08/03/2024 Right PROCEDURE: [place] MASTECTOMY PARTIAL; COMMENT: Right breast magnetic seed localized partial mastectomy, right axilla sentinel lymph node biopsy ob 08/03/2024. BREAST LUMPECTOMY Right Medical History Medical History Date Comments Iron deficiency anemia DX:Iron d eficiency anemia Malignant neoplasm of lower- outer quadrant of right breast of female, estrogen receptor positive ([facility] V24, [facility] V28) 07/14/2024 DX:Malignant neoplasm of low er-outer quadrant of right breast of female, estrogen receptor positive (HCC) Depression DX:Depression Asthma DX:Asthma Diabetes ([facility] V24, [facility] V28) DX:Diabetes (HCC) Family History Medical History [...] 09/21/2025 10:00 AM EST Office Visit [facility] Hematology Oncology [address] [place] [phone] Abril Dawson MD [address] [place] [phone] 05/22/2026 1:30 PM EDT [facility]ment [facility] [address] [phone] Health Maintenance Due Date Last Done Comments [...] of lower-outer quadrant of right female breast ([facility] V24, [facility] V28) MG MAMMO DIGITAL DIAGNOSTIC W KIRILL BILAT Routine 05/18/2025 1:56 PM EDT Malignant neoplasm of lower-outer quadrant of right breast of female, estrogen receptor positive ([facility]/HCC V24, [facility]/HCC V28) MICROALBUMIN CREATININE URINE RATIO Routine 03/29/2025 2:09 PM EDT Type 2 diabetes mellitus with other specified complication, unspecified whether ocean transportation intermediary insulin use ([facility] V24, [facility]/HCC V28) COMPREHENSIVE METABOLIC PANEL Routine 03/29/2025 2:09 PM EDT Type 2 diabetes mellitus with other specified complication, without long-term current use of insulin ([facility] V24, [facility] V28) HEMOGLOBIN A1C Routine 03/29/2025 2:09 PM EDT Type 2 diabetes mellitus with other specified complication, without long-term current use of insulin ([facility] V24, [facility] V28) LIPID PANEL WITH REFLEX TO DIRECT LDL Routine 03/29/2025 2:09 PM EDT Type 2 diabetes mellitus with other specified complication, without long-term current use of insulin ([facility] V24, [facility] V28) BD BONE DENSITY DXA AXIAL SKELETON [...] 1:02 PM EDT [facility] Comment:Auto resulted. Blood Venous blood specimen / Unknown Venipuncture / Unknown 06/14/2025 10:30 AM EDT 06/14/2025 11:24 AM EDT Denis Chan MD LAB BLOOD ORDERABLES Final Resul t [facility] ([facility] [address] [place] [address], [place] [phone] * MG Mammo Digital Diagnostic w Kirill [...] Mammography location: [facility] [address] [place], [address] -------- FINAL REPORT -------- Dictated By: Brenden Tan Dictated Date: 05/18/2025 13:38 ET Assigned Physician: Brenden Tan Reviewed and Electronically Signed By: Brenden Tan Signed Date: 05/18/2025 13:53 ET Workstation ID: [id number] Transcribed By: Self Edit Transcribed Date: 05/18/2025 [...] projections Computer-aided detection was employed with the [employer] AI 3-D. TISSUE DENSITY: There are scattered [...] projections Computer-aided detection was employed with the [employer] AI 3-D. TISSUE DENSITY: There are scattered [...] year. Mammography location: [facility] at [address], [address] -------- FINAL REPORT -------- Dictated By: Brenden Tan Dictated Date: 05/18/2025 13:38 ET Assigned Physician: Brenden Tan Reviewed and Electronically Signed By: Brenden Tan Signed Date: 05/18/2025 13:53 ET Workstation ID: [id number] Transcribed By: Self Edit Transcribed Date: 05/18/2025 13:38 ET us Denis Chan MD IMG BI PROCEDURES Final Result * (ABNORMAL) Lipid panel with reflex to direct LDL (03/29/2025 2:09 PM EDT) Cholesterol 166 0 - 200 mg/dL LAB CHEMISTRY METHOD 03/29/2025 7:[address] [facility] Triglycerides 196(H) 0 - 150 mg/dL LAB CHEMISTRY METHOD 03/29/2025 7:[address] [facility] HDL 58 >=40 mg/dL LAB CHEMISTRY METHOD 03/29/2025 7:[address] [facility] LDL Calculated 69 0 - 100 mg/dL LAB CHEMISTRY METHOD 03/29/2025 7:[address] [facility] VLDL Cholesterol Zurdo 39.2 mg/dL LAB CHEMISTRY METHOD 03/29/2025 7:[address] [facility] Non HDL Chol. (LDL+VLDL) 108 <145 mg/dL LAB CHEMISTRY METHOD 03/29/2025 7:[address] [facility] Chol/HDL Ratio 2.9 0.0 - 4.4 LAB CHEMISTRY METHOD 03/29/2025 7:[address] [facility] Blood Venous blood specimen / Unknown Venipuncture / Unknown 03/29/2025 2:09 PM EDT 03/29/2025 2:09 PM EDT us Jacques Claros MD LAB BLOOD ORDERABLES Final Res ult [facility] [address] [place] [address], [place] [phone] * Microalbumin creatinine urine ratio (03/29/2025 2:09 PM EDT) Creatinine, Urine 176.0 mg/dL LAB CHEMISTRY METHOD 03/29/2025 5:[address] [facility] Microalb, Ur 22.1 0.0 - 29.0 mg/L LAB CHEMISTRY METHOD 03/29/2025 5:[address] [facility] Microalb/Creat Ratio 13 <30 mg/g creat LAB CHEMISTRY METHOD 03/29/2025 5:[address] [facility] Urine Urine specimen obtained by clean catch procedure / Unknown Non-blood Collection / Unknown 03/29/2025 2:09 PM EDT 03/29/2025 2:09 PM EDT us Jacques Claros MD LAB URINE ORDERABLES Final Res ult Performing Organization Address [facility]/ZIP Co de Phone Number [facility] [address] [place] [address], [place] [phone] * Hemoglobin A1c (03/29/2025 2:09 PM EDT) Hemoglobin A1C 6.3 <6.5 % LAB CHEMISTRY METHOD 03/29/2025 10:[address] [facility] Mean Bld Glu Estim. 134 mg/dL LAB CHEMISTRY METHOD 03/29/2025 10:[address] [facility] Blood Venous blood specimen / Unknown Venipuncture / Unknown 03/29/2025 2:09 PM EDT 03/29/2025 2:09 PM EDT us Jacques Claros MD LAB BLOOD ORDERABLES Final Res ult [facility] [address] [place] [address], [place] [phone] * (ABNORMAL) Comprehensive metabolic panel (03/29/2025 2:09 PM EDT) Sodium 139 133 - 145 mmol/L LAB CHEMISTRY METHOD 03/29/2025 7:24 PM [facility] Potassium 4.1 3.5 - 5.5 mmol/L LAB CHEMISTRY METHOD 03/29/2025 7:24 PM [facility] Chloride 105 96 - 110 mmol/L LAB CHEMISTRY METHOD 03/29/2025 7:24 PM [facility] CO2 27 21 - 32 mmol/L LAB CHEMISTRY METHOD 03/29/2025 7:24 PM [facility] Anion Gap 7 3 - 11 LAB CHEMISTRY METHOD 03/29/2025 7:24 PM [facility] Glucose 178(H) 70 - 100 mg/dL LAB CHEMISTRY METHOD 03/29/2025 7:24 PM [facility] BUN 16 5 - 25 mg/dL LAB CHEMISTRY METHOD 03/29/2025 7:24 PM [facility] Creatinine 0.75 0.50 - 1.10 mg/dL LAB CHEMISTRY METHOD 03/29/2025 7:24 PM [facility] eGFR 92 >=60 mL/min/1. 73m2 LAB CHEMISTRY METHOD 03/29/2025 7:24 PM [facility] Comment:Calculation based on the Chronic Kidney Disease Epidemiology Collaboration (CKD-EPI) equation refit without adjustment for race. BUN/Creatinine Ratio 21.3 LAB CHEMISTRY METHOD 03/29/2025 7:24 PM [facility] Calcium 9.5 8.5 - 10.5 mg/dL LAB CHEMISTRY METHOD 03/29/2025 7:24 PM [facility] AST (SGOT) 23 10 - 42 unit/L LAB CHEMISTRY METHOD 03/29/2025 7:24 PM [facility] ALT (SGPT) 55 10 - 60 unit/L LAB CHEMISTRY METHOD 03/29/2025 7:24 PM [facility] Alkaline Phosphatase 80 42 - 121 unit/L LAB CHEMISTRY METHOD 03/29/2025 7:[address] [facility] Total Protein 7.0 6.0 - 8.0 g/dL LAB CHEMISTRY METHOD 03/29/2025 7:[address] [facility] Albumin 3.8 3.2 - 5.0 g/dL LAB CHEMISTRY METHOD 03/29/2025 7:[address] [facility] Total Bilirubin 0.7 0.0 - 1.4 mg/dL LAB CHEMISTRY METHOD 03/29/2025 7:[address] [facility] Blood Venous blood specimen / Unknown Venipuncture / Unknown 03/29/2025 2:09 PM EDT 03/29/2025 2:09 PM EDT us Jacques Claros MD LAB BLOOD ORDERABLES Final Res ult [facility] [address] [place] [address], * BD Bone Density DXA Axial Skeleton (01/18/2025 1:34 PM EDT) Anatomical Region Laterality Modality Wrist, Hip, L-spine Bone Densito metry 01/19/2025 8:0 1 AM EDT Impressions 01/19/2025 8:03 AM EDT 1. Osteopenia. 2. FRAX analysis yields a 10-year probability of major osteoporotic fracture of 3.6% and a 10-year probability of hip fracture of 0.2%. Code 20826 -------- FINAL REPORT -------- Dictated By: Shiraz Olmstead Dictated Date: 01/19/2025 08:01 ET Assigned Physician: Shiraz Olmstead Reviewed and Electronically Signed By: Shiraz Olmstead Signed Date: 01/19/2025 08:03 ET Workstation ID: [id number] Transcribed By: Self Edit Transcribed Date: 01/19/2025 [...] density of the femurs bilaterally is 0.852 gm/[id number] is 85% of that of young normals [...] probability of hip fracture of 0.2%. Code 78480 -------- FINAL REPORT -------- Dictated By: Shiraz Olmstead Dictated Date: 01/19/2025 08:01 ET Assigned Physician: Shiraz Olmstead Reviewed and Electronically Signed By: Shiraz Olmstead Signed Date: 01/19/2025 08:03 ET Workstation ID: [id number] Transcribed By: Self Edit Transcribed Date: 01/19/2025 08:01 ET Abril Dawson MD IMG DXA PROCEDURES Final Result * Diabetes Eye Exam (10/12/2024) Provider [facility]NA[employer] Final Result * Pap smear (04/10/2021) 04/10/2021 Narrative HISTORICAL TESTING LAB RESULTING AGENCY - 04/17/2021 1:36 PM EDT [id number] THINPREP PAP, IMAGED: NEGATIVE FOR SQUAMOUS INTRAEPITHELIAL [...] to Health Maintenance Insurance MEDICAID - [place] [facility] Care Teams Throw Out Clerk Relationship Specialty Start Date End Date Jacques Claros MD [address] [place] [id number] PCP - General Internal Medicine 09/29/24
--- OUTSIDE RECORDS SUMMARY | 2025-08-31 19:29 | XMS_ITS | Data Portability ---
Author Organization [place] - [facility], Allergy Address [address] [address] Care Team Providers Care Card Grinder Helper Name Role Phone CALEB BRADFORD Primary Care [...] By Organization Details Last Modified Time 06/01/2025 [id number] Please note: Parts of this encounter note [...] Time Sensorineural hearing loss of bilateral ears [id number] Active 2024 [facility] [address] [facility] [address], [place], [phone], [facility] 10:15:01 Problem Notes None recorded. Procedures Surgical History Date Name Laterality Status Provider Name and Address Organization Details Recorded Time 06/01/2025 Comp Audio with Tymps - 28020 & 17170 completed [facility] [address] [facility] [address], [place], [phone], [facility] 06/01/2025 10:14:46 Imaging Results None recorded. Procedure [...] FOLLOW PREOP INSTRUCTI ON FROM DOCTOR'S OFFICE. [place] 06/01 completed Not Available Not Available Not Available albuterol sulf 90 mcg/actuati on breath activated powder inhaler,sen sor Inhale 2 puffs every 4 hours by inhalatio n route. active Not Available Not Available No t Available Vitals Date Recorded Body height Body mass index (BMI) Body weight Provider Name and Address Organization Details Last Updated DateTime 06/01/2025 157.48 cm 28 kg/m2 42335.63 g Julia Arguello [facility] 06/01/2025 10:25:26 Social History None recorded. Functional [...] ICD10 Code Diagnosis IMO Codes Diagnosis Note [id number] TRINA HUGO MD [facility] [address] [phone] 06/01/2025 09:31:23 06/01/2025 10:41:44 Sensorineural hearing loss of bilateral ears [id number] H90.3 [id number] Audiologic al evaluation results: Right ear: Normal [...] Quan Member ID Guarantor Name 06/01/2025 1 [facility] [id number] Queta Orellanaa [id number] Queta Orellanaa Bill 11/26/2024 3 [facility] Federico Christiano Asher [id number] Queta Khan 06/01/2025 2 [place] [facility] Queta De Los Santosagena Bill [id number] Queta Asher Bill Notes Date Note Type [...] have no hearing issues. TRINA MARINELLI MD [address] [place] [address], [phone], [facility] - [facility] 06/01/2025 10:41:49 OBGyn Episode No OBEpisode recorded.
--- OUTSIDE RECORDS SUMMARY | 2025-08-31 19:29 | XMS_ITS | Encounter Summary ---
Author Organization [employer] [facility] Address [address] [place] [address] Care Team Providers Care Software Testing Specialist Name Role Phone Jacques Claros MD Primary Care Provider [phone] Encounter Details Date Type Department Care Team Description 08/11/[address] [facility] Oncology Services [address] [place] [address] Laura Martel, RN Social History Tobacco Use [...] on filedocumented in this encounter Care Teams Software Testing Specialist Relationship Specialty Start Date End Date Jacques Claros MD PCP - General Internal Medicine 07/15/24 documented as of this encounter
--- OUTSIDE RECORDS SUMMARY | 2025-08-31 19:29 | XMS_ITS ---
Author Organization [facility] Address [address] [place] [address] Phone Care Team Providers Care Dispatcher Clerk Name Role Phone Jacques Claros MD Primary Care Provider [phone] Active Problems Problem Noted Date Diagnosed Date Malignant neoplasm of lower- outer quadrant of right breast of female, estrogen receptor positive ([facility] V24, [facility] V28) 08/18/2024 Cancer Staging:Pathologic:Stage IA(pT1b, pN1a, cM0, G1, ER+, UT+, HER2-, Oncotype DX score: 13) - Signed by Reese Dee MD on 09/13/2024 Diabetes ([facility] V24, [facility] V28) 06/18/2021 Acute seasonal allergic rhinitis due [...]
== END 2025-08-31 15:01 | disposition home or self-care (01) ==
LOC: HO.HAP 15:00
PROVIDERS: Visit Provider Otolaryngology
DX: Z46.1 Encounter for fitting and adjustment of hearing aid (principal); H90.3 Sensorineural hearing loss, bilateral
CPT/HCPCS: V5011; V5020; V5160; V5261